=== PATIENT | male | born 1960 | race Caucasian/White ===

== ENCOUNTER 2016-11-14 09:29 | Inpatient (IN) | payer BC ==
[~2016-11-14] VITALS: Ht 188 cm; Wt 69.5 kg
[2016-11-14] MEDS ORDERED: ONDANSETRON 4 MG VIAL ONE (10:35)
[2016-11-14] MEDS ORDERED: SODIUM CHLORIDE 0.9% 50 ML IV ONE (10:37)
[2016-11-14] MEDS ORDERED: DILAUDID 1 MG/ML AMP ONE ×2 (10:37→12:03)
[2016-11-14] MEDS ORDERED: ONDANSETRON 4 MG VIAL IV PUSH PRN (12:05)
[2016-11-14] MEDS: OMNIPAQUE 240 MG/ML, 50 ML PO SCH ×2 (14:05→14:18)
[2016-11-14] MEDS: DILAUDID 1 MG/ML AMP IV PRN ×3 (14:26→22:30)
[2016-11-14 14:32] VITALS: BP_SYST 119; RESP 18; TEMP 97.5
[2016-11-14 14:33] VITALS: Ht 188 cm; Wt 69.5 kg
[2016-11-14 16:28] VITALS: BP_SYST 122; RESP 18; TEMP 97.6
[2016-11-14] MEDS ORDERED: PROMETHAZINE 25 MG/ML VIAL IV PRN ×2 (16:50→19:25)
[2016-11-14] MEDS ORDERED: OPTIRAY 350 100 ML VIAL EDI IV ONE (18:45)
[2016-11-14 19:54] VITALS: BP_SYST 121; RESP 18; TEMP 97.9
[2016-11-14] MEDS: SALINE FLUSH 10 ML FLUSH SCH (20:31)
[2016-11-14] MEDS: ONDANSETRON 4 MG VIAL IV PUSH PRN (20:31)
[2016-11-14] MEDS: SALINE FLUSH 10 ML FLUSH PRN (22:30)
[2016-11-14 23:38] VITALS: BP_SYST 128; RESP 18; TEMP 97.8
[2016-11-15] MEDS: ONDANSETRON 4 MG VIAL IV PUSH PRN ×5 (00:53→21:20)
[2016-11-15] MEDS: SALINE FLUSH 10 ML FLUSH PRN ×3 (00:53→23:40)
[2016-11-15 03:53] VITALS: BP_SYST 118; RESP 18; TEMP 97.8
[2016-11-15] MEDS: SODIUM CHLORIDE 0.9% FLUSH BAG 500 ML IV SCH (06:00)
[2016-11-15] MEDS: SODIUM CHLORIDE 0.9% 1,000 ML IV SCH ×3 (06:21→23:49)
[2016-11-15] MEDS: DILAUDID 1 MG/ML AMP IV PRN ×6 (06:23→23:40)
[2016-11-15 07:55] VITALS: BP_SYST 120; RESP 18; TEMP 97.6
[2016-11-15] MEDS: SALINE FLUSH 10 ML FLUSH SCH ×2 (08:05→20:12)
[2016-11-15 11:16] VITALS: BP_SYST 126; RESP 18; TEMP 97.9
[2016-11-15 15:46] VITALS: BP_SYST 124; RESP 18; TEMP 98
[2016-11-15 19:25] VITALS: BP_SYST 116; RESP 14; TEMP 98
[2016-11-15 23:00] VITALS: BP_SYST 122; RESP 14; TEMP 98.3
[2016-11-16] MEDS: SALINE FLUSH 10 ML FLUSH PRN (03:50)
[2016-11-16] MEDS: ONDANSETRON 4 MG VIAL IV PUSH PRN ×5 (03:50→20:22)
[2016-11-16] MEDS: DILAUDID 1 MG/ML AMP IV PRN ×5 (03:50→20:22)
[2016-11-16 04:00] VITALS: BP_SYST 122; RESP 14; TEMP 98.2
[2016-11-16] MEDS: SODIUM CHLORIDE 0.9% FLUSH BAG 500 ML IV SCH (05:33)
[2016-11-16] MEDS: SALINE FLUSH 10 ML FLUSH SCH ×2 (07:40→19:41)
[2016-11-16 07:46] VITALS: BP_SYST 132; RESP 16; TEMP 98.3
[2016-11-16] MEDS ORDERED: MINERAL OIL ENEMA 133 ML BTL RECTAL ONE (08:20)
[2016-11-16 11:58] VITALS: BP_SYST 130; RESP 16; TEMP 97.9
[2016-11-16] MEDS: SODIUM CHLORIDE 0.9% 1,000 ML IV SCH ×2 (14:11→23:18)
[2016-11-16 15:31] VITALS: BP_SYST 124; RESP 16; TEMP 98
[2016-11-16 19:54] VITALS: BP_SYST 102; RESP 16; TEMP 98.9
[2016-11-16 23:42] VITALS: BP_SYST 124; RESP 16; TEMP 97.9
[2016-11-17] MEDS: ONDANSETRON 4 MG VIAL IV PUSH PRN ×5 (00:26→16:10)
[2016-11-17] MEDS: DILAUDID 1 MG/ML AMP IV PRN ×5 (00:26→16:10)
[2016-11-17 03:27] VITALS: BP_SYST 102; RESP 16; TEMP 97.6
[2016-11-17] MEDS: SODIUM CHLORIDE 0.9% FLUSH BAG 500 ML IV SCH (05:31)
[2016-11-17] MEDS ORDERED: MAG CIT SOLN 300 ML PO ONE (07:35)
[2016-11-17 07:46] VITALS: BP_SYST 116; RESP 16; TEMP 97.9
[2016-11-17] MEDS: SALINE FLUSH 10 ML FLUSH SCH (08:00)
[2016-11-17 11:03] VITALS: BP_SYST 112; RESP 16; TEMP 97.9
[2016-11-17 15:05] VITALS: BP_SYST 123; RESP 16; TEMP 98.2
[2016-11-17 15:40] VITALS: BP_SYST 123; RESP 16; TEMP 98.2
== END 2016-11-17 16:50 | disposition home or self-care (01) | DRG 389 ==
LOC: ENRESERVTM → ENRESERVDT → ER 09:29 → EMR 12:22 → 5THW 14:20
PROVIDERS: ADMIT Surgery; ATTEND Surgery
DX: K56.60 Unspecified intestinal obstruction (principal); C34.90 Malignant neoplasm of unspecified part of unspecified bronchus or lung; G62.9 Polyneuropathy, unspecified; Z72.0 Tobacco use; K21.9 Gastro-esophageal reflux disease without esophagitis; Z92.21 Personal history of antineoplastic chemotherapy
CPT/HCPCS: 36415; 74020; 74022; 74177; 80048; 80053; 81001; 83690; 85025; 96374; 96375; 96376

== ENCOUNTER 2016-11-29 10:49 | Inpatient (IN) | payer BC ==
[~2016-11-29] VITALS: Ht 1889.8 cm; Wt 83.0 kg
[2016-11-29] MEDS ORDERED: ONDANSETRON 4 MG VIAL ONE (12:15)
[2016-11-29] MEDS ORDERED: SODIUM CHLORIDE 0.9% 1,000 ML ONE (12:15)
[2016-11-29] MEDS ORDERED: DILAUDID 1 MG/ML AMP ONE ×2 (12:15→18:01)
[2016-11-29] MEDS ORDERED: ONDANSETRON 4 MG VIAL IV PUSH ONE (12:20)
[2016-11-29] MEDS ORDERED: PANTOPRAZOLE 80 MG in SODIUM CHLORIDE 0.9% 250 ML IV ONE (12:20)
[2016-11-29] MEDS: PANTOPRAZOLE 80 MG in SODIUM CHLORIDE 0.9% 250 ML IV SCH ×2 (14:10→20:50)
[2016-11-29] MEDS ORDERED: METHYLNALTREXONE SUBQ ONE (14:10)
[2016-11-29] MEDS ORDERED: SALINE FLUSH 10 ML FLUSH PRN (14:10)
[2016-11-29 16:01] VITALS: BP_SYST 100; RESP 16; TEMP 98.4; Ht 1889.8 cm; Wt 83.0 kg
[2016-11-29] MEDS ORDERED: DILAUDID 1 MG/ML AMP IV PRN (18:05)
[2016-11-29] MEDS: ONDANSETRON 4 MG VIAL IV PUSH PRN ×2 (18:11→23:23)
[2016-11-29] MEDS: SALINE FLUSH 10 ML FLUSH SCH (19:41)
[2016-11-29 20:27] VITALS: BP_SYST 116; RESP 16; TEMP 98
[2016-11-29] MEDS ORDERED: PROMETHAZINE 25 MG/ML VIAL IV PRN ×2 (21:55→22:00)
[2016-11-29] MEDS: DILAUDID 1 MG/ML AMP IV PRN (23:12)
[2016-11-29] MEDS: SODIUM CHLOR 0.9% W/KCL 20MEQ 1,000 ML IV SCH (23:27)
[2016-11-30] VITALS (18 sets, daily range): BP systolic 102–124; RESP 16–18; TEMP 96.9–97.9
[2016-11-30] MEDS: SODIUM CHLORIDE 0.9% FLUSH BAG 500 ML IV SCH ×2 (02:13→23:34)
[2016-11-30] MEDS: ONDANSETRON 4 MG VIAL IV PUSH PRN ×3 (02:40→15:33)
[2016-11-30] MEDS: DILAUDID 1 MG/ML AMP IV PRN ×4 (02:41→17:12)
[2016-11-30] MEDS ORDERED: CHLORASEPTIC 180 ML BTL PO PRN (05:00)
[2016-11-30] MEDS: SALINE FLUSH 10 ML FLUSH SCH ×2 (08:00→19:55)
[2016-11-30] MEDS: PANTOPRAZOLE 80 MG in SODIUM CHLORIDE 0.9% 250 ML IV SCH ×2 (08:27→19:54)
[2016-11-30] MEDS ORDERED: METHYLNALTREXONE SUBQ ONE (15:05)
[2016-11-30] MEDS: SODIUM CHLOR 0.9% W/KCL 20MEQ 1,000 ML IV SCH (19:55)
[2016-12-01] MEDS: DILAUDID 1 MG/ML AMP IV PRN ×4 (02:11→18:52)
[2016-12-01] MEDS: ONDANSETRON 4 MG VIAL IV PUSH PRN ×2 (02:11→18:51)
[2016-12-01] MEDS: PANTOPRAZOLE 80 MG in SODIUM CHLORIDE 0.9% 250 ML IV SCH (06:17)
[2016-12-01 07:06] VITALS: BP_SYST 115; RESP 16; TEMP 97.9
[2016-12-01] MEDS: SALINE FLUSH 10 ML FLUSH SCH (08:02)
[2016-12-01 11:05] VITALS: BP_SYST 126; RESP 18; TEMP 98.5
[2016-12-01 15:46] VITALS: BP_SYST 119; RESP 16; TEMP 99.1
[2016-12-01 20:30] VITALS: BP_SYST 117; RESP 18; TEMP 98
[2016-12-01] MEDS ORDERED: PANTOPRAZOLE 40 MG TAB PO SCH (21:00)
[2016-12-01 21:06] VITALS: BP_SYST 117; RESP 18; TEMP 98
[2016-12-01 21:23] VITALS: BP_SYST 119; RESP 16; TEMP 98
== END 2016-12-01 21:30 | disposition home or self-care (01) | DRG 378 ==
LOC: ENRESERVTM → ENRESERVDT → ER 10:49 → EMR 14:23 → 5THW 15:56
PROVIDERS: ADMIT Internal Medicine; ATTEND Internal Medicine
DX: K92.2 Gastrointestinal hemorrhage, unspecified (principal); D62 Acute posthemorrhagic anemia; D61.818 Other pancytopenia; K56.60 Unspecified intestinal obstruction; C77.9 Secondary and unspecified malignant neoplasm of lymph node, unspecified; C78.4 Secondary malignant neoplasm of small intestine; K22.2 Esophageal obstruction; C34.90 Malignant neoplasm of unspecified part of unspecified bronchus or lung; C79.89 Secondary malignant neoplasm of other specified sites; K59.00 Constipation, unspecified; Z92.21 Personal history of antineoplastic chemotherapy; Z86.718 Personal history of other venous thrombosis and embolism; Z79.01 Long term (current) use of anticoagulants
CPT/HCPCS: 36415; 36430; 74022; 80053; 83690; 85014; 85018; 85025; 85610; 86850; 86900; 86901; 86923; 94799; 96361; 96374; 96375; 99255